=== PATIENT | male | born 1995 | race Two or more races ===

== ENCOUNTER 2019-09-11 17:46 | Emergency (ER) | payer MEDICAID ==
[~2019-09-11] VITALS: Ht 170.2 cm; Wt 57.0 kg
[2019-09-11 18:03] VITALS: BP 112/65
== END 2019-09-11 19:31 | disposition left against medical advice (07) ==
LOC: ER 17:46
DX: J11.1 Influenza due to unidentified influenza virus with other respiratory manifestations (principal); J45.909 Unspecified asthma, uncomplicated
CPT/HCPCS: 99281

== ENCOUNTER 2019-09-12 21:36 | Emergency (ER) | payer MEDICAID ==
[~2019-09-12] VITALS: Ht 170.2 cm; Wt 65.0 kg
[2019-09-12 21:41] VITALS: BP 106/51
== END 2019-09-12 22:49 | disposition home or self-care (01) ==
LOC: ER 21:36
DX: F15.10 Other stimulant abuse, uncomplicated (principal)
CPT/HCPCS: 99281; 99282